=== PATIENT | female | born 1965 | race African-American/Black ===

== ENCOUNTER 2016-12-14 14:07 | Emergency (ER) | payer SELFPAY ==
[~2016-12-14] VITALS: Ht 154.9 cm; Wt 53.7 kg
[~2016-12-14 14:07] MED LIST: AMLODIPINE BESYL5 MG PO; KEFLEX500 MG; LISINOPRIL10 MG PO; MIRALAX255 GM PO; NORTRIPTYLINE H25 MG PO; PERCOCET 7.51 TABLET PO; ZOFRAN4 MG PO
[2016-12-14 16:26] LABS: HEMATOCRIT 40.7 % (36.0-46.0); MCH 30.8 PG (29.0-34.0); MCHC 34.4 G/DL (30.0-36.0); MCV 89.5 FL (83-99); MEAN PLAT.VOLUME 9.8 uM^3 (9.5-12.4); PLATELET COUNT 292 K/uL (156-360); RBC DIS.WIDTH-CV 12.6 % (11.8-14.6); RBC DIS.WIDTH-SD 40.8 % (39-53); RED BLOOD COUNT 4.55 M/uL (3.80-5.20)
[2016-12-14 16:44] LABS: CHLORIDE 105 mEq/L (99-109); POTASSIUM 3.9 mEq/L (3.7-5.4); SODIUM 141 mEq/L (136-147)
[2016-12-14 16:46] LABS: GLUCOSE 154 mg/dL (70-99)
[2016-12-14 16:47] LABS: ANION GAP 10 MEQ/L (2-14)
[2016-12-14 16:48] LABS: TROP-I INTERPRETATION NEGATIVE; TROPONIN-I < 0.01 ng/mL (0.0-0.30)
[2016-12-14 16:50] LABS: GFR ESTIMATE (CALCULATED) > 59 mL/min/
[2016-12-14 16:51] LABS: UREA NITROGEN (BUN) 14 mg/dL (9-23)
[2016-12-14] MEDS ORDERED: VALIUM5 MG PO (17:20)
[2016-12-14] MEDS ORDERED: NORCO 5/3251 TABLET PO (17:20)
[2016-12-14] MEDS ORDERED: PREDNISONE50 MG PO (17:20)
[2016-12-14 17:46] VITALS: BP 131/96
== END 2016-12-14 17:59 | disposition home or self-care (01) ==
LOC: EME 14:07
DX: M54.12 Radiculopathy, cervical region (principal); F32.9 Major depressive disorder, single episode, unspecified; F43.21 Adjustment disorder with depressed mood; I10 Essential (primary) hypertension; R63.4 Abnormal weight loss; Z68.22 Body mass index [BMI] 22.0-22.9, adult; Z87.891 Personal history of nicotine dependence
CPT/HCPCS: 71020; 80048; 84484; 85027; 90839; 93005; 99281; 99284

== ENCOUNTER → 2017-03-22 | Outpatient (CLI) | payer OTHER ==
[~2017-03-22] VITALS: Ht 152.4 cm; Wt 54.4 kg
[~2017-03-22] MED LIST changes: +NORCO 5/3251 TABLET PO; +PREDNISONE50 MG PO; +VALIUM5 MG PO
== END | disposition home or self-care (01) ==
LOC: AMB 11:48
DX: Z12.11 Encounter for screening for malignant neoplasm of colon (principal); Z86.010 Personal history of colon polyps; D12.4 Benign neoplasm of descending colon; D12.2 Benign neoplasm of ascending colon; I10 Essential (primary) hypertension; D64.9 Anemia, unspecified; F41.9 Anxiety disorder, unspecified; K21.9 Gastro-esophageal reflux disease without esophagitis; Z80.0 Family history of malignant neoplasm of digestive organs; Z87.891 Personal history of nicotine dependence
CPT/HCPCS: 88305; J2250; J3010